=== PATIENT | male | born 1960 | race Caucasian/White ===

== ENCOUNTER 2018-03-21 09:23 | Outpatient (CLI) | payer BC | END 2018-03-21 23:59 | disposition home or self-care (01) | LOC: RAD 09:23 | PROVIDERS: ATTEND Family Medicine | DX: K76.0 Fatty (change of) liver, not elsewhere classified (principal); Z87.891 Personal history of nicotine dependence | CPT/HCPCS: 76700 ==

== ENCOUNTER 2024-04-02 20:30 | Emergency (ER) | payer BC, OTHER ==
[~2024-04-02] VITALS: Ht 172.7 cm; Wt 68.0 kg
[2024-04-02] MEDS: ondansetron 4mg rapidly disintigrating tab PO ONE ×3 (21:15→23:41)
[2024-04-02 22:41] VITALS: BP 127/82; PULSE 102; O2SAT 95
[2024-04-02] MEDS ORDERED: ketorolac trometh 15mg/ml vial 15 MG/ML ML IM ONE (23:15)
[2024-04-02] MEDS ORDERED: ONDA-245 PO (23:16)
[2024-04-02 23:24] VITALS: TEMP 98.9
[2024-04-02 23:42] VITALS: RESP 16
[2024-04-02] MEDS: ketorolac trometh 30MG/ML vial 30 MG/ML VIAL IM ONE (23:42)
[2024-04-02] MEDS: acetaminophen 325mg tablet PO ONE (23:42)
== END 2024-04-02 23:43 | disposition home or self-care (01) ==
LOC: ER 20:30
DX: B34.9 Viral infection, unspecified (principal); Z88.2 Allergy status to sulfonamides; Z20.822 Contact with and (suspected) exposure to COVID-19
CPT/HCPCS: 36415; 87502; 87503; 87811; 96372; 99284; J1885